=== PATIENT | male | born 1980 | race Hispanic/Latino ===

== ENCOUNTER 2020-03-15 20:44 | Emergency (ER) | payer SELFPAY ==
[2020-03-15] MEDS ORDERED: predniSONE 20 MG TAB ONE (21:04)
== END 2020-03-15 21:21 | disposition home or self-care (01) ==
LOC: MADERS 20:44
DX: L25.5 Unspecified contact dermatitis due to plants, except food (principal); E11.9 Type 2 diabetes mellitus without complications
CPT/HCPCS: 99282; J7512

== ENCOUNTER 2020-03-29 15:12 | Emergency (ER) | payer OTHER, SELFPAY ==
[2020-03-29] MEDS ORDERED: Promethazine HCl 25 MG/ML VIAL ONE (15:43)
[2020-03-29] MEDS ORDERED: Ketorolac Tromethamine 30 MG/ML VIAL ONE (15:43)
[2020-03-29] MEDS ORDERED: Sodium Chloride 0.9% 1,000 ML ONE (15:43)
== END 2020-03-29 16:30 | disposition home or self-care (01) ==
LOC: MADERS 15:12
DX: G43.909 Migraine, unspecified, not intractable, without status migrainosus (principal); Z79.84 Long term (current) use of oral hypoglycemic drugs
CPT/HCPCS: 96365; 96375; J1885; J2550; J7050

== ENCOUNTER 2025-07-19 14:09 | Emergency (ER) | payer SELFPAY ==
[2025-07-19] MEDS ORDERED: Prochlorperazine 10 MG/2 ML VIAL ONE (14:35)
[2025-07-19] MEDS ORDERED: diphenhydrAMINE 50 MG/ML VIAL ONE (14:35)
[2025-07-19] MEDS ORDERED: Dexamethasone 10 MG/ML VIAL ONE (14:36)
== END 2025-07-19 15:53 | disposition home or self-care (01) ==
LOC: MADERS 14:09
DX: J01.90 Acute sinusitis, unspecified (principal); G43.909 Migraine, unspecified, not intractable, without status migrainosus; E11.9 Type 2 diabetes mellitus without complications
CPT/HCPCS: 70450; 96361; 96374; 96375; J0780; J1100; J1200; J7030